=== PATIENT | female | born 1980 | race Two or more races ===

== ENCOUNTER 2021-11-26 00:20 | Emergency (ER) | payer OTHER ==
[2021-11-26 00:42] VITALS: BP 109/66; PULSE 79; RESP 18; TEMP 98.2
--- NOTE | 2021-11-26 01:40 | ED ---
General Adult HPI - General Chief complaint: Recheck/Abnormal Lab/Rx Stated complaint: Covid test Source: patient, RN notes reviewed Mode of arrival: ambulatory Limitations: no limitations - History of Present Illness Initial comments: 41-year-old female presents to the emergency department accompanied by her family requesting a Covid test [place]. She denies any medical concerns or complaints at this time. - Related Data Allergies Allergy/AdvReac Type Severity Reaction Status Date / Time No Known Allergies Allergy Verified 11/26/21 00:42 Review of Systems ROS Statement: Those systems with pertinent positive or pertinent negative responses have been documented in the HPI. ROS Other: All systems not noted in ROS Statement are negative. Past Medical History Past Medical History: No Reported History History of Any Multi-Drug Resistant Organisms: None Reported Past Surgical History: No Surgical Hx Reported Past Psychological History: No Psychological Hx Reported Smoking Status: Never smoker Past Alcohol Use History: None Reported Past Drug Use History: None Reported General Exam Limitations: no limitations (Well-developed, well-nourished female in no acute distress. Initial temperature 98.2, pulse 79, respirations 18, blood pressure 109/66, pulse ox 99% on room air.) General appearance: alert, in no apparent distress ENT exam: Present: normal exam, mucous membranes moist Respiratory exam: Present: normal lung sounds bilaterally. Absent: respiratory distress, wheezes, rales, rhonchi, stridor Cardiovascular Exam: Present: regular rate, normal rhythm, normal heart sounds. Absent: systolic murmur, diastolic murmur, rubs, gallop, clicks Neurological exam: Present: alert, oriented X3, CN II-XII intact Psychiatric exam: Present: normal affect, normal mood Course Vital Signs 11/26/21 00:40 Temperature 98.2 F Pulse Rate 79 Respiratory 18 Rate Blood Pressure 109/66 O2 Sat by Pulse 99 Oximetry Medical Decision Making - Medical Decision Making This is a healthy 41-year-old female who presents to the emergency department accompanied by her family en route to [place]. Her physical exam findings are negative. She has no complaints at this time. She is provided with a copy of her negative test and instructed to seek care if it becomes necessary. Attending: Nolvia. - Lab Data Lab Results 11/26/21 Range/Units 00:45 Coronavirus (PCR) Not Detected (Not Detectd) Disposition Clinical Impression: Lab test negative for COVID-19 virus Disposition: HOME SELF-CARE Condition: Stable Instructions (If sedation given, give patient instructions): Normal Exam (ED) Additional Instructions: You are being provided with a copy of your negative Covid test. If you require any further care, follow-up with your PCP or go to the nearest emergency department. Is patient prescribed a controlled substance at d/c from ED?: No Referrals: None,Stated [Primary Care Provider] - 1-2 days Time of Disposition: 01:47
== END 2021-11-26 01:55 | disposition home or self-care (01) ==
LOC: EC 00:20
DX: Z20.822 Contact with and (suspected) exposure to COVID-19 (principal)
CPT/HCPCS: 87635; 99283